=== PATIENT | female | born 1945 | race African-American/Black ===

== ENCOUNTER 2020-06-09 08:57 | Emergency (ER) | payer MEDICARE ==
[2020-06-09] MEDS ORDERED: Dexamethasone 10 MG/ML VIAL ONE (11:59)
== END 2020-06-09 12:34 | disposition home or self-care (01) ==
LOC: ERS 08:57
DX: M54.16 Radiculopathy, lumbar region (principal); I10 Essential (primary) hypertension; K21.9 Gastro-esophageal reflux disease without esophagitis; F17.200 Nicotine dependence, unspecified, uncomplicated; Z79.82 Long term (current) use of aspirin; Z79.899 Other long term (current) drug therapy
CPT/HCPCS: 96372; 99283; J1100

== ENCOUNTER 2020-07-16 15:09 | Outpatient (CLI) | payer MEDICARE ==
--- NOTE | 2020-07-16 15:58 | ULT ---
EXAM: SOFT TISSUE ULTRASOUND: 07/16/20 HISTORY: Mass right arm. FINDINGS: The palpable finding in the right arm lateral biceps region is evaluated with ultrasound. There is a circumscribed isoechoic appearing mass measuring 2.6 x 3.6 x 1.3 cm in size. 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 It is not a cyst. 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 POS: RRE
== END 2020-07-16 15:10 | disposition home or self-care (01) ==
LOC: BICULT 15:09
PROVIDERS: ATTEND Family Medicine
DX: R22.31 Localized swelling, mass and lump, right upper limb (principal)
CPT/HCPCS: 76999